=== PATIENT | female | born 1965 | race Caucasian/White ===

== ENCOUNTER → 2017-05-27 | Outpatient (CLI) | payer BC ==
[~2017-05-27] MED LIST: SINCALIDE IV ONE; SODIUM CHLORIDE 0.9% IV ONE
--- NOTE | 2017-05-27 12:49 | DIAGNOSTIC IMAGING REPORT ---
NUCLEAR MEDICINE HEPATOBILIARY SCAN WITH GALLBLADDER EJECTION FRACTION CLINICAL HISTORY: Abdominal pain. COMPARISON: None TECHNIQUE: 5.5 mCi of technetium 99m Choletec IV was injected at 10:45 AM on May 27, 2017. Immediately following injection, imaging of the abdomen was carried out for 60 minutes in the anterior projection. At this time, 0.92 mcg of Sincalide was injected IV as per protocol. Imaging was performed for an additional 45 minutes to estimate a gallbladder ejection fraction. FINDINGS: Hepatic uptake of radiotracer is prompt and homogeneous. Activity within the gallbladder and common bile duct is noted at 15 minutes. Small bowel activity is noted at 25 minutes. Following injection of sincalide, normal gallbladder emptying was noted with ejection fraction estimated at 53%. Normal is greater than 30-35%. IMPRESSION: 1. Normal hepatobiliary scan. No evidence of acute or chronic cholecystitis. 2. Normal gallbladder ejection fraction of 53%. Electronically signed by: Ever Cintron M.D. 05/27/2017 12:47 PM Dictated Date/Time: 05/27/2017 12:46 PM
== END | disposition home or self-care (01) ==
LOC: C.NUCL 10:13
PROVIDERS: ATTEND Internal Medicine Gastroenterology
DX: R10.13 Epigastric pain (principal)

== ENCOUNTER → 2017-08-16 | Outpatient (CLI) | payer BC | END | disposition home or self-care (01) | LOC: C.LAB 09:22 | PROVIDERS: ATTEND Nutritionist | DX: R53.83 Other fatigue (principal) ==

== ENCOUNTER 2019-01-09 21:06 | Inpatient (IN) ==
[2019-01-09] MEDS ORDERED: KETOROLAC TROMETHAMINE 15 MG/ML VIAL IV STA (21:22)
[2019-01-09] MEDS ORDERED: SODIUM CHLORIDE 0.9% 1000ML 1,000 ML IV ONE (21:22)
[2019-01-09] MEDS ORDERED: ONDANSETRON INJ 2 MG/ML 2 ML VIAL IV STA ×2 (21:22→23:24)
[2019-01-09 21:53] LABS: Basophils # (auto) 0.02 K/uL (0-0.2); Basophils % (auto) 0.2 %; Eosinophils # (auto) 0.19 K/uL (0-0.5); Eosinophils % (auto) 2.3 %; Hematocrit (blood only) 42.2 % (37-47); Hemoglobin 14.2 g/dL (12.0-16.0); Immature Granulocytes # (auto) 0.03 K/uL (0.00-0.02); Immature Granulocytes % (auto) 0.4 %; Lymphocytes # (auto) 2.26 K/uL (1.2-3.4); Lymphocytes % (auto) 27.2 %; Mean Corpuscular Hgb Conc 33.6 g/dL (32-36); Mean Corpuscular Volume 93.2 fL (80-100); Mean Platelet Volume 11.2 fL (7.4-10.4); Monocytes # (auto) 0.86 K/uL (0.11-0.59); Monocytes % (auto) 10.4 %; Neutrophils # (auto) 4.94 K/uL (1.4-6.5); Neutrophils % (auto) 59.5 %; Platelet Count 183 K/uL (130-400); RDW Coefficient of Variation 12.5 % (11.5-14.5); RDW Standard Deviation 42.4 fL (36.4-46.3); Red Blood Count 4.53 M/uL (4.2-5.4)
[2019-01-09 22:12] LABS: Albumin Level 3.9 gm/dl (3.4-5.0); BUN Creatinine Ratio 19.9 (10-20); Bilirubin Direct 0.2 mg/dl (0-0.2); Calcium 9.6 mg/dl (8.5-10.1); Creatinine Clr Calc Pharmacy 52.4 ml/min; Est GFR (African American) 83.4; Potassium 3.9 mmol/L (3.5-5.1)
[2019-01-09 22:15] LABS: Bilirubin,Total 0.5 mg/dl (0.2-1); Total Protein 7.6 gm/dl (6.4-8.2)
[2019-01-09 22:46] LABS: Appearance Urine Turbid (Clear); Bacteria Urine Automated Negative (Negative); Bilirubin Urine Negative (Negative); Blood Urine Negative (Negative); Color Urine Yellow; Glucose Urine UA Negative (Negative); Ketones Urine Negative (Negative); Leukocyte Esterase Urine Trace (Negative); Nitrite Urine Negative (Negative); Protein Urine Negative (Negative); RBC Urine Automated 0-4 /hpf (0-4); Specific Gravity Urine 1.019 (1.000-1.030); Urobilinogen Urine Negative (Negative)
--- NOTE | 2019-01-09 23:56 | Emergency Department Note ---
History of Present Illness General Chief complaint: Abdominal Pain Stated complaint: ABDOMINAL PAIN Source: patient Mode of arrival: ambulatory Limitations: no limitations History of Present Illness Maximum Pain Intensity: 7 This patient is a 53-year-old female who presents to the emergency department complaining of upper abdominal pain. The patient states that after eating approximately 3 hours ago, she developed severe upper abdominal pain with radiation into the center of her back. She states this is a burning pain and rates her discomfort an 8/10. She states nothing makes the pain better or worse. She took 2 Bentyl without relief. She has associated nausea but has not vomited. Patient states she has been dealing with problems with her gallbladder for the past few months. She was first diagnosed with gallstones at a hospital in [place] last month. She states she is scheduled to have her gallbladder removed in [address] Rocha. She denies any fevers or urinary symptoms. Home Medications Home Medications Medication Instructions Recorded Confirmed Type desvenlafaxine succinate [Pristiq] 50 mg PO QAM 01/03/19 01/09/19 History multivitamin 1 tab PO QAM 01/03/19 01/09/19 History ranitidine HCl [Zantac] 150 mg PO QAM 01/03/19 01/09/19 History cyanocobalamin (vitamin B-12) 0 mcg PO QAM 01/09/19 01/09/19 History [Vitamin B-12] Allergies Allergy/AdvReac Type Severity Reaction Status Date / Time lovastatin Allergy Unknown LEG PAIN, Verified 01/09/19 21:42 MUSCLE SPASMS simvastatin Allergy Unknown LEG PAIN, Verified 01/09/19 21:42 MUSCLE SPASMS Past Med/Surg History Medical History Anxiety GERD (gastroesophageal reflux disease) Hiatal hernia History of esophagitis History of gastritis Hyperlipidemia Peptic ulcer disease Surgical History H/O bursectomy OF RIGHT HIP History of arthroscopy LEFT KNEE History of arthroscopy of right shoulder Rotator Cuff Repair History of colonoscopy History of esophagogastroduodenoscopy (EGD) S/P bilateral breast reduction Social History Preferred Language: Citizen Of [place] Communication Ability: Effective Analog Ic Design Architect Required: No Beliefs That Will Affect Care: None Current Living Situation: Spouse Feels Safe at Home: Yes Smoking Status: Former smoker Tobacco Type: cigarettes ; Second Hand Exposure: No ; Hx Alcohol Use: No Hx Substance Use: No Review of Systems A total of 10 systems reviewed and were otherwise negative Physical Exam Vital Signs Vital Signs - 24 hr 01/09/19 21:09 01/09/19 22:26 01/09/19 23:56 Temperature 36.4 C L Temperature Source Oral Sepsis Recent Fever Within 48 Hours No Sepsis New/Unexplained Change in Mental Status No Sepsis Action Taken by Nursing No Action Required Pulse Rate 63 Pulse Rate [Right Finger] 54 L 60 Pulse Rhythm Regular Pulse Rhythm [Right Finger] Regular Regular Pulse Strength [Right Finger] Normal Normal Respiratory Rate 20 20 20 Respiratory Effort / Characteristics Non-Labored Spontaneous Non-Labored Non-Labored Spontaneous Respiratory Depth Normal Normal Normal Respiratory Pattern Regular Blood Pressure 123/70 Blood Pressure [Right Arm] 101/54 L 103/66 Blood Pressure Mean 87 Blood Pressure Mean [Right Arm] 69 78 Blood Pressure Position Sitting Blood Pressure Position [Right Arm] Lying Pulse Oximetry 99 100 99 Oxygen Delivery Method Room Air Room Air Room Air VITALS: Vitals are noted on the nurse's note and reviewed by myself. Vital signs stable. GENERAL: This is a 53-year-old female, in no acute distress, nondiaphoretic, well-developed well-nourished. SKIN: The skin was without rashes. EYES: Pupils equal round and reactive to light and accommodation. No scleral icterus. MOUTH: Mucous membranes moist. NECK: Supple without nuchal rigidity. No lymphadenopathy. HEART: Regular rate and rhythm without murmurs gallops or rubs. LUNGS: Clear to auscultation bilaterally without wheezes, rales or rhonchi. ABDOMEN: Positive bowel sounds x 4. Moderate tenderness to palpation in the epigastric region and right upper quadrant. Positive Lawson sign. EXTREMITIES: No peripheral edema. NEURO: Patient was alert and oriented to person place and time. Course Consultations Consultation #1: Dr. Fitzpatrick-General surgery Dr. Fitzpatrick recommends admitting the patient to the medicine service for GI consultation and will consult on the patient. Consultation #2: [place] [facility] [place] Administered Medications Ceftriaxone Sodium (Rocephin) 1,000 mg in 50 mls @ 100 mls/hr IV DAILY@2200 VANE Stop: 01/20/19 01:59 Last Infusion: 01/10/19 02:30 Dose: 0 mls/hr Documented by: [id number] Admin: 01/10/19 02:00 Dose: 100 mls/hr Documented by: [id number] Famotidine 20 mg/ Syringe 5 mls @ 2.5 mls/min IV Q12 VANE Stop: 02/09/19 01:31 Last Admin: 01/10/19 08:54 Dose: 2.5 mls/min Documented by: [id number] Admin: 01/10/19 02:00 Dose: 2.5 mls/min Documented by: [id number] Potassium Chloride/Sodium Chloride (Normal Saline W/20 Meq Kcl) 20 meq in 1,000 mls @ 100 mls/hr IV .Q10H VANE Stop: 02/09/19 01:31 Last Admin: 01/10/19 12:08 Dose: 100 mls/hr Documented by: [id number] Infusion: 01/10/19 12:08 Dose: 100 mls/hr Documented by: [id number] Infusion: 01/10/19 07:00 Dose: 100 mls/hr Documented by: [id number] Infusion: 01/10/19 06:04 Dose: 0 mls/hr Documented by: [id number] Infusion: 01/10/19 02:30 Dose: 100 mls/hr Documented by: [id number] Infusion: 01/10/19 02:22 Dose: 0 mls/hr Documented by: [id number] Admin: 01/10/19 02:00 Dose: 100 mls/hr Documented by: [id number] Discontinued Medications Sodium Chloride (Nss 1000ml) 1,000 mls @ 999 mls/hr IV .Q1H1M ONE Stop: 01/09/19 22:22 Last Infusion: 01/09/19 22:28 Dose: 0 mls/hr Documented by: [id number] Admin: 01/09/19 21:40 Dose: 999 mls/hr Documented by: [id number] Ketorolac Tromethamine (Toradol) 15 mg IV NOW STA Stop: 01/09/19 21:23 Last Admin: 01/09/19 21:40 Dose: 15 mg Documented by: [id number] Ondansetron HCl (Zofran) 4 mg IV NOW STA Stop: 01/09/19 21:23 Last Admin: 01/09/19 21:40 Dose: 4 mg Documented by: [id number] Ondansetron HCl (Zofran) 4 mg IV NOW STA Stop: 01/09/19 23:25 Last Admin: 01/09/19 23:28 Dose: 4 mg Documented by: [id number] Medical Decision Making Differential Diagnosis Differential diagnosis includes acute cholecystitis, biliary colic, choledocholithiasis, peptic ulcer disease, gastritis, among others. Home Medications Current Medication List: was personally reviewed by me Laboratory Data Attestation: I reviewed the patient's lab results. Result diagrams: 01/10/19 07:36 01/10/19 07:36 Lab Results 01/09/19 01/09/19 01/09/19 Range/Units 21:38 21:38 22:28 WBC 8.30 (4.8-10.8) K/uL RBC 4.53 (4.2-5.4) M/uL Hgb 14.2 (12.0-16.0) g/dL Hct 42.2 (37-47) % MCV 93.2 (80-100) fL MCH 31.3 (25-34) pg MCHC 33.6 (32-36) g/dL RDW Std Deviation 42.4 (36.4-46.3) fL RDW Coeff of Robby 12.5 (11.5-14.5) % Plt Count 183 (130-400) K/uL MPV 11.2 H (7.4-10.4) fL Immature Gran % (Auto) 0.4 % Neut % (Auto) 59.5 % Lymph % (Auto) 27.2 % [place] % (Auto) 10.4 % Eos % (Auto) 2.3 % Baso % (Auto) 0.2 % Immature Gran # (Auto) 0.03 H (0.00-0.02) K/uL Neut # (Auto) 4.94 (1.4-6.5) K/uL Lymph # (Auto) 2.26 (1.2-3.4) K/uL [place] # (Auto) 0.86 H (0.11-0.59) K/uL Eos # (Auto) 0.19 (0-0.5) K/uL Baso # (Auto) 0.02 (0-0.2) K/uL Sodium 141 (136-145) mmol/L Potassium 3.9 (3.5-5.1) mmol/L Chloride 106 (98-107) mmol/L Carbon Dioxide 30 (21-32) mmol/L Anion Gap 5.0 (3-11) BUN 18 (7-18) mg/dl Creatinine 0.90 (0.6-1.2) mg/dl Est Cr Clr Drug Dosing 52.4 ml/min Est GFR ( Amer) 83.4 Est GFR (Non-Af Amer) 72.0 BUN/Creatinine Ratio 19.9 (10-20) Glucose 100 H (70-99) mg/dl Calcium 9.6 (8.5-10.1) mg/dl Total Bilirubin 0.5 (0.2-1) mg/dl Direct Bilirubin 0.2 (0-0.2) mg/dl AST 325 H (15-37) U/L ALT 188 H (12-78) U/L Alkaline Phosphatase 104 (45-117) U/L Total Protein 7.6 (6.4-8.2) gm/dl Albumin 3.9 (3.4-5.0) gm/dl Lipase 172 (73-393) U/L Urine Color Yellow Urine Appearance Turbid A (Clear) Urine pH 8.0 H (4.5-7.5) Ur Specific [place] 1.019 (1.000-1.030) Urine Protein Negative (Negative) Urine Glucose (UA) Negative (Negative) Urine Ketones Negative (Negative) Urine Blood Negative (Negative) Urine Nitrite Negative (Negative) Urine Bilirubin Negative (Negative) Urine Urobilinogen Negative (Negative) Ur Leukocyte Esterase Trace H (Negative) Urine WBC (Auto) 1-5 (0-5) /hpf Urine RBC (Auto) 0-4 (0-4) /hpf U Hyaline Cast (Auto) 1-5 (0-5) /lpf U Epithel Cells (Auto) 10-20 H (0-5) /lpf Urine Bacteria (Auto) Negative (Negative) POC Ur Test (NEG) 01/09/19 Range/Units 22:28 WBC (4.8-10.8) K/uL RBC (4.2-5.4) M/uL Hgb (12.0-16.0) g/dL Hct (37-47) % MCV (80-100) fL MCH (25-34) pg MCHC (32-36) g/dL RDW Std Deviation (36.4-46.3) fL RDW Coeff of Robby (11.5-14.5) % Plt Count (130-400) K/uL MPV (7.4-10.4) fL Immature Gran % (Auto) % Neut % (Auto) % Lymph % (Auto) % [place] % (Auto) % Eos % (Auto) % Baso % (Auto) % Immature Gran # (Auto) (0.00-0.02) K/uL Neut # (Auto) (1.4-6.5) K/uL Lymph # (Auto) (1.2-3.4) K/uL [place] # (Auto) (0.11-0.59) K/uL Eos # (Auto) (0-0.5) K/uL Baso # (Auto) (0-0.2) K/uL Sodium (136-145) mmol/L Potassium (3.5-5.1) mmol/L Chloride (98-107) mmol/L Carbon Dioxide (21-32) mmol/L Anion Gap (3-11) BUN (7-18) mg/dl Creatinine (0.6-1.2) mg/dl Est Cr Clr Drug Dosing ml/min Est GFR ( Amer) Est GFR (Non-Af Amer) BUN/Creatinine Ratio (10-20) Glucose (70-99) mg/dl Calcium (8.5-10.1) mg/dl Total Bilirubin (0.2-1) mg/dl Direct Bilirubin (0-0.2) mg/dl AST (15-37) U/L ALT (12-78) U/L Alkaline Phosphatase (45-117) U/L Total Protein (6.4-8.2) gm/dl Albumin (3.4-5.0) gm/dl Lipase (73-393) U/L Urine Color Urine Appearance (Clear) Urine pH (4.5-7.5) Ur Specific [place] (1.000-1.030) Urine Protein (Negative) Urine Glucose (UA) (Negative) Urine Ketones (Negative) Urine Blood (Negative) Urine Nitrite (Negative) Urine Bilirubin (Negative) Urine Urobilinogen (Negative) Ur Leukocyte Esterase (Negative) Urine WBC (Auto) (0-5) /hpf Urine RBC (Auto) (0-4) /hpf U Hyaline Cast (Auto) (0-5) /lpf U Epithel Cells (Auto) (0-5) /lpf Urine Bacteria (Auto) (Negative) POC Ur Test NEG (NEG) Imaging Data Attestation: I personally reviewed and interpreted this imaging study as follows: Radiologist's Impression: US RUQ: The gallbladder is distended containing multiple gallstones. No definite gallbladder wall thickening. There is linear hypoechogenicity adjacent to the gallbladder which does not demonstrate vascularity. The possibility of pericholecystic fluid is difficult to exclude. There is a positive sonographic Lawson sign. Overall findings could represent acute cholecystitis in the correct clinical setting. Common bile duct is dilated measuring up to 7 mm. A distal obstructing lesion is not clearly seen. Recommend correlation with liver function tests and consider MRCP or ERCP. Radiologist: Reji Peraza MD Blood Pressure Blood Pressure Findings: Normal blood pressure Blood Pressure Disposition: did not require urgent referral MDM Narrative The patient is a 53-year-old female who presents today complaining of epigastric and right upper quadrant abdominal pain in the setting of known gallbladder disease. Labs revealed no leukocytosis or concerning anemia. LFTs were found to be elevated with AST 325, ALT 188. Bilirubin within normal limits. Gallbladder ultrasound was performed and read by statrad showing multiple stones, mild dilation of the common bile duct and possible pericholecystic fluid. Surgery initially consulted and recommended evaluation by the medical service for GI consultation and MRCP/ERCP. They will consult on the patient. Patient was agreeable with this plan of care. Case was discussed with the [facility] hospitalist, who agreed to evaluate the patient for further care. Impression & Plan Acute calculous cholecystitis Discharge Plan Visit Data *Final* Discharge Date/Time: 01/10/19 01:24 Chief Complaint: Abdominal Pain Stated Complaint: ABDOMINAL PAIN ED Provider: Jacobo Brown ED Midlevel Provider: Brenda Ambriz Discharge Problem: Acute calculous cholecystitis Patient Disposition: Admitted As Inpatient Discharge Instructions Interventions: ED Discharge Assessment Last Done: 01/10/19 01:24
[2019-01-10] MEDS ORDERED: ONDANSETRON INJ 2 MG/ML 2 ML VIAL IV PRN ×2 (01:32)
[2019-01-10] MEDS: cefTRIAXone SODIUM 1,000 MG/50 ML BAG IV SCH ×2 (02:00→21:06)
[2019-01-10] MEDS: NSS + 20MEQ KCL 20 MEQ/1,000 ML BAG IV SCH ×3 (02:00→21:06)
[2019-01-10] MEDS: FAMOTIDINE 20 MG in SYRINGE 3 ML IV SCH ×3 (02:00→21:06)
--- NOTE | 2019-01-10 02:55 | History & Physical Report ---
Date of Service January 10, 2019 Assessment & Plan (1) Calculous cholecystitis: Calculus cholecystitis with common bile duct dilatation of 7 mm and abnormal LFTs- Patient has had a negative EGD, and colonoscopy. She reports having a HIDA scan last year that was normal. Her symptoms and imaging along with laboratories to this point today would be consistent with cholecystitis. There would be concern regarding a possible blockage of the CBD by a stone. We will therefore order an MRCP. Patient reports that she was scheduled for outpatient surgery with Dr. Rocha on 01/11/2019. We will consult Dr. Rocha. If MRCP is abnormal, we will consult Dr. Olivares, who performed her last EGD, for a possible ERCP. Ceftriaxone 1 g IV daily. Famotidine 20 mg IV every 12 hours. Morphine sulfate 2 mg IV every 4 hours as needed severe pain. Zofran 4 mg IV every 6 hours as needed. Present on Admission?: Yes (2) Common bile duct dilatation: See above Present on Admission?: Yes (3) Abnormal LFTs: See above Present on Admission?: Yes History of Present Illness Chief Complaint: The patient presents to the emergency department today with recurrent epigastric to upper abdominal to right lateral back area pain. Primary Care Provider: Consuelo Adair MD The patient is a 53-year-old female who presents to the emergency department with a recurrent episode of epigastric, right upper quadrant and right posterior back pain. These are most often triggered by eating fatty foods, but may occur out of nowhere. She was seen at an emergency department at [place], and there was question about a possible gallbladder issue. She reports that she is scheduled to undergo cholecystectomy by Dr. Rocha from general surgery on 01/11/2019. Allergies Allergy/AdvReac Type Severity Reaction Status Date / Time lovastatin Allergy Unknown LEG PAIN, Verified 01/09/19 21:42 MUSCLE SPASMS simvastatin Allergy Unknown LEG PAIN, Verified 01/09/19 21:42 MUSCLE SPASMS Home Medications Home Medications Medication Instructions Recorded Confirmed Type desvenlafaxine succinate [Pristiq] 50 mg PO QAM 01/03/19 01/09/19 History magnesium 1 dose PO QAM 01/03/19 01/09/19 History multivitamin 1 tab PO QAM 01/03/19 01/09/19 History ranitidine HCl [Zantac] 150 mg PO QAM 01/03/19 01/09/19 History cyanocobalamin (vitamin B-12) 0 mcg PO QAM 01/09/19 01/09/19 History [Vitamin B-12] Past Med/Surg History Medical History Anxiety GERD (gastroesophageal reflux disease) Hiatal hernia History of esophagitis History of gastritis Hyperlipidemia Peptic ulcer disease Surgical History H/O bursectomy OF RIGHT HIP History of arthroscopy LEFT KNEE History of arthroscopy of right shoulder Rotator Cuff Repair History of colonoscopy History of esophagogastroduodenoscopy (EGD) S/P bilateral breast reduction Social History Preferred Language: [place] Communication Ability: Effective Crematorium Operator Required: No Beliefs That Will Affect Care: None Current Living Situation: Spouse Other Information That Helps Us Care for You: No Feels Safe at Home: Yes Smoking Status: Former smoker Tobacco Type: cigarettes ; Do You Dip or Chew Tob acco: No ; Second Hand Exposure: No ; Tobacco Cessation Education Requested by Patient: No Hx Alcohol Use: No Hx Substance Use: No Review of Systems Review of Systems: The patient denies chest pain, palpitations, shortness of breath, dyspnea on exertion, cough, lower extremity swelling, sore throat, fevers, chills, sweats, weight change, vomiting, diarrhea , constipation, blood in urine or stool, dysuria, urinary frequency or urgency, lightheadedness, dizziness, headache, memory loss, loss of consciousness, rash, abnormal bruising or bleeding, imbalance, focal or generalized weakness, numbness or tingling in arms or legs, generalized arthralgias or myalgias, back or neck pain, or night sweats. The review of systems is otherwise negative other than for that already noted above, and at least 10 systems have been reviewed. Physical Exam Physical Exam: The patient is awake, alert and oriented 3, well developed and well nourished, normocephalic and atraumatic, lying in bed and in no acute distress. HEENT--PERRL, EOMI, mucous membranes and oropharynx dry. Neck--supple. No JVD. No bruits. Thyroid normal, trachea midline, no adenopathy. Heart--normal S1 and S2. No murmurs, rubs or gallops. Lungs--clear bilaterally, no respiratory distress, no accessory muscle use. Abdomen--normal bowel sounds and soft. Mild epigastric and right upper quadrant tenderness pain. Extremities--no cyanosis or clubbing. No edema. There are good distal pulses b/l. Dermatologic--normal skin turgor, normal color, no abnormal lymph nodes, no rash. Neurologic--cranial nerves II through XII grossly intact. Rheumatologic--normal range of motion. Psychiatric--normal affect. Results & Data Vital Signs (Past 12 Hours) Vital Signs Temp Pulse Pulse Resp BP BP Pulse Ox 01/10/19 01:43 98.1 F 60 16 107/66 97 01/10/19 01:32 98.1 F 60 16 107/66 97 01/09/19 23:56 60 20 103/66 99 01/09/19 22:26 54 L 20 101/54 L 100 01/09/19 21:09 97.5 F L 63 20 123/70 99 Laboratory Results Laboratory Results WBC 8.30 K/uL (4.8-10.8) 01/09/19 21:38 RBC 4.53 M/uL (4.2-5.4) 01/09/19 21:38 Hgb 14.2 g/dL (12.0-16.0) 01/09/19 21:38 Hct 42.2 % (37-47) 01/09/19 21:38 MCV 93.2 fL (80-100) 01/09/19 21:38 MCH 31.3 pg (25-34) 01/09/19 21:38 MCHC 33.6 g/dL (32-36) 01/09/19 21:38 RDW Std Deviation 42.4 fL (36.4-46.3) 01/09/19 21:38 RDW Coeff of Robby 12.5 % (11.5-14.5) 01/09/19 21:38 Plt Count 183 K/uL (130-400) 01/09/19 21:38 MPV 11.2 fL (7.4-10.4) H 01/09/19 21:38 Immature Gran % (Auto) 0.4 % 01/09/19 21:38 Neut % (Auto) 59.5 % 01/09/19 21:38 Lymph % (Auto) 27.2 % 01/09/19 21:38 [place] % (Auto) 10.4 % 01/09/19 21:38 Eos % (Auto) 2.3 % 01/09/19 21:38 Baso % (Auto) 0.2 % 01/09/19 21:38 Immature Gran # (Auto) 0.03 K/uL (0.00-0.02) H 01/09/19 21:38 Neut # (Auto) 4.94 K/uL (1.4-6.5) 01/09/19 21:38 Lymph # (Auto) 2.26 K/uL (1.2-3.4) 01/09/19 21:38 [place] # (Auto) 0.86 K/uL (0.11-0.59) H 01/09/19 21:38 Eos # (Auto) 0.19 K/uL (0-0.5) 01/09/19 21:38 Baso # (Auto) 0.02 K/uL (0-0.2) 01/09/19 21:38 Sodium 141 mmol/L (136-145) 01/09/19 21:38 Potassium 3.9 mmol/L (3.5-5.1) 01/09/19 21:38 Chloride 106 mmol/L (98-107) 01/09/19 21:38 Carbon Dioxide 30 mmol/L (21-32) 01/09/19 21:38 Anion Gap 5.0 (3-11) 01/09/19 21:38 BUN 18 mg/dl (7-18) 01/09/19 21:38 Creatinine 0.90 mg/dl (0.6-1.2) 01/09/19 21:38 Est Cr Clr Drug Dosing 52.4 ml/min 01/09/19 21:38 Est GFR ( Amer) 83.4 01/09/19 21:38 Est GFR (Non-Af Amer) 72.0 01/09/19 21:38 BUN/Creatinine Ratio 19.9 (10-20) 01/09/19 21:38 Glucose 100 mg/dl (70-99) H 01/09/19 21:38 Calcium 9.6 mg/dl (8.5-10.1) 01/09/19 21:38 Total Bilirubin 0.5 mg/dl (0.2-1) 01/09/19 21:38 Direct Bilirubin 0.2 mg/dl (0-0.2) 01/09/19 21:38 AST 325 U/L (15-37) H 01/09/19 21:38 ALT 188 U/L (12-78) H 01/09/19 21:38 Alkaline Phosphatase 104 U/L (45-117) 01/09/19 21:38 Total Protein 7.6 gm/dl (6.4-8.2) 01/09/19 21:38 Albumin 3.9 gm/dl (3.4-5.0) 01/09/19 21:38 Lipase 172 U/L (73-393) 01/09/19 21:38 Urine Color Yellow 01/09/19 22:28 Urine Appearance Turbid (Clear) A 01/09/19 22:28 Urine pH 8.0 (4.5-7.5) H 01/09/19 22:28 Ur Specific [place] 1.019 (1.000-1.030) 01/09/19 22:28 Urine Protein Negative (Negative) 01/09/19 22:28 Urine Glucose (UA) Negative (Negative) 01/09/19 22:28 Urine Ketones Negative (Negative) 01/09/19 22:28 Urine Blood Negative (Negative) 01/09/19 22:28 Urine Nitrite Negative (Negative) 01/09/19 22:28 Urine Bilirubin Negative (Negative) 01/09/19 22:28 Urine Urobilinogen Negative (Negative) 01/09/19 22:28 Ur Leukocyte Esterase Trace (Negative) H 01/09/19 22:28 Urine WBC (Auto) 1-5 /hpf (0-5) 01/09/19 22:28 Urine RBC (Auto) 0-4 /hpf (0-4) 01/09/19 22:28 U Hyaline Cast (Auto) 1-5 /lpf (0-5) 01/09/19 22:28 U Epithel Cells (Auto) 10-20 /lpf (0-5) H 01/09/19 22:28 Urine Bacteria (Auto) Negative (Negative) 08/05/19 22:28 POC Ur Test NEG (NEG) 01/09/19 22:28 Code Status & VTE Plan Code Status Full code VTE Prophylaxis Plan VTE Prophylaxis will be ordered: Yes PG Care Time/CCT Total # of Minutes Spent Total Time Spent with Patient: Total time spent is greater than 50% in coordination of care (as documented) at patient's floor/unit and/or counseling patient:
[2019-01-10] MEDS ORDERED: MoRPHine SULFATE 2 MG/ML CARP IV PRN (02:56)
--- NOTE | 2019-01-10 06:56 | CT Scan Report ---
CT abd pelvis wo con CLINICAL HISTORY: 53 years-old Female presenting with abnormal LFT's, gallbladder wall thickening. TECHNIQUE: Multidetector CT of the abdomen and pelvis was performed without the use of intravenous co ntrast. IV contrast: None. One or more dose lowering techniques were used consistent with the princip les of ALARA (as low as reasonably achievable), including automatic exposure control, mA or kV adjust ment to individual patient size, and/or use of iterative reconstruction. COMPARISON: Ultrasound from 01/09/2019. CT DOSE (mGy.cm): The estimated cumulative dose is 262.41 mGy.cm. FINDINGS: Home Support Worker topogram: Unremarkable. Lung bases: Normal heart size. No pericardial or pleural effusion. Minimal dependent changes likely a telectasis. Liver: Normal morphology. Normal density. Well-defined hypodense lesion centrally in the liver likely hepatic cyst. Biliary: Mild intrahepatic and extra hepatic bladder ductal dilatation is suggested allowing for nonc ontrast technique. Layering gallstones within the distended gallbladder. There is also suggestion of gallbladder wall thickening and trace pericholecystic fluid. No pericholecystic fat infiltration. Pancreas: Normal noncontrast appearance. Spleen: Normal noncontrast appearance. Adrenal glands: Normal noncontrast appearance. Kidneys and ureters: Normal noncontrast appearance. No nephrolithiasis. No hydronephrosis. Normal ure ters. Bladder: Incompletely evaluated secondary to underdistention. Pelvic organs: Normal noncontrast appearance. Bowel: Normal appendix. No bowel obstruction. Peritoneal cavity: No free fluid or intraperitoneal gas. Lymph nodes: No gross lymphadenopathy allowing for noncontrast technique. Vasculature: Atherosclerosis of the normal caliber abdominal aorta. Abdominal wall: Normal. Musculoskeletal: Degenerative changes of the spine. IMPRESSION: 1. Distended gallbladder with subtle wall thickening, trace pericholecystic fluid, and gallstones. T his strongly suggests the diagnosis of acute calculus cholecystitis. Surgical consultation advised. Electronically signed by: Lon Foster M.D. 01/10/2019 6:55 AM
--- NOTE | 2019-01-10 07:22 | Magnetic Resonance Report ---
MRCP CLINICAL HISTORY: Cholecystitis. COMPARISON STUDY: Abdominal CT dated 01/10/2019. Abdominal ultrasound dated 01/09/2019. TECHNIQUE: Abdominal MRCP is performed utilizing various T2-weighted sequences in the axial and coron al planes. IV contrast was not administered for this examination. 3-D reformats are created and asses sed. The examination is degraded by motion artifact. FINDINGS: The gallbladder is distended and filled with numerous gallstones. The gallbladder wall is thickened a nd there is pericholecystic inflammation and fluid. The appearance is consistent with acute cholecyst itis. The common bile duct is diminutive measuring up to 3 mm in diameter. There are no filling defec ts identified to suggest choledocholithiasis. There is a questionable second ductal structure (both a re seen on coronal high-resolution image #66 of 136) of indeterminant significance extending from the hilum. Variant ductal anatomy/duplication is not excluded. There is likely a stone within the cystic duct seen on axial high-resolution image #143 of 321. The pancreatic duct is normal in caliber and n ot well visualized. A 10 mm cyst is identified in the left lobe of the liver. The unenhanced liver is otherwise grossly u nremarkable. The unenhanced spleen, adrenal glands, and pancreas are normal as imaged. The kidneys ar e normal in size and without hydronephrosis. There is no evidence of bowel obstruction. Colonic fecal retention is observed. The abdominal aorta is normal in caliber. No pleural effusion is identified. The bony structures are normal as imaged. IMPRESSION: 1. Cholelithiasis with evidence of acute cholecystitis. 2. A stone is likely present within the cystic duct. 3. The common bile duct is diminutive. There is no evidence of choledocholithiasis. 4. Question a second ductal structure extending from the hepatic hilum towards the duodenum. This is not well delineated, and variant ductal anatomy/duplication is not excluded. Electronically signed by: Pranav Hudson M.D. 01/10/2019 7:21 AM
--- NOTE | 2019-01-10 07:28 | Ultrasound Report ---
ULTRASOUND RIGHT UPPER QUADRANT ABDOMEN CLINICAL HISTORY: Right upper quadrant abdominal pain. COMPARISON STUDY: No priors. TECHNIQUE: Real-time, grayscale, and color flow sonography of the right upper quadrant of the abdomen was performed. Images are reviewed in the transverse and longitudinal planes. FINDINGS: Liver: The liver is normal in size and echotexture. There is no intrahepatic biliary ductal dilatatio n. The main portal vein is patent. Gallbladder: The gallbladder is distended and filled with numerous shadowing gallstones. The gallblad micky wall measures up to 2 mm in diameter. There is trace pericholecystic fluid. A sonographic Lawson' s sign is reportedly present. The common bile duct measures up to 0.7 cm in diameter at the head of t he pancreas. Pancreas: Visualized portions of the pancreatic head and body are normal in appearance. Right kidney: Survey images of the right kidney demonstrate normal size and echotexture. There is no hydronephrosis. Ascites: None. IMPRESSION: Cholelithiasis with evidence of acute cholecystitis. Electronically signed by: Pranav Hudson M.D. 01/10/2019 7:26 AM
[2019-01-10 07:49] LABS: Basophils # (auto) 0.01 K/uL (0-0.2); Basophils % (auto) 0.3 %; Eosinophils # (auto) 0.14 K/uL (0-0.5); Hematocrit (blood only) 37.3 % (37-47); Hemoglobin 12.3 g/dL (12.0-16.0); Lymphocytes # (auto) 1.14 K/uL (1.2-3.4); Lymphocytes % (auto) 32.5 %; Mean Corpuscular Volume 92.8 fL (80-100); Mean Platelet Volume 11.4 fL (7.4-10.4); Monocytes # (auto) 0.48 K/uL (0.11-0.59); Monocytes % (auto) 13.7 %; Neutrophils # (auto) 1.74 K/uL (1.4-6.5); Neutrophils % (auto) 49.5 %; Platelet Count 145 K/uL (130-400); RDW Coefficient of Variation 12.5 % (11.5-14.5); RDW Standard Deviation 42.7 fL (36.4-46.3); Red Blood Count 4.02 M/uL (4.2-5.4); White Blood Count 3.51 K/uL (4.8-10.8)
[2019-01-10 08:08] LABS: Partial Thromboplastin Ratio 0.9; Partial Thromboplastin Time 25.3 Seconds (21.0-31.0); Prothrombin Time 10.2 Seconds (9.0-12.0)
[2019-01-10 08:19] LABS: Albumin Level 3.3 gm/dl (3.4-5.0); BUN Creatinine Ratio 18.6 (10-20); Calcium 8.6 mg/dl (8.5-10.1); Creatinine Clr Calc Pharmacy 66.9 ml/min; Est GFR (African American) 111.1; Est GFR (Non-African American) 95.9; Potassium 4.3 mmol/L (3.5-5.1)
[2019-01-10 08:21] LABS: Albumin Globulin Ratio 1.1 (0.9-2); Bilirubin,Total 0.8 mg/dl (0.2-1); Total Protein 6.3 gm/dl (6.4-8.2)
--- NOTE | 2019-01-10 08:52 | Surgery Consultation ---
Date of Consultation January 10, 2019 Assessment & Plan (1) Calculous cholecystitis: MRCP shows stone in cystic duct clinically improved. continue antibiotics. ice chips/sips only/NPO after midnight. gave pt options. will keep on schedule for lap priya tomorrow with Dr. Rocha. History of Present Illness Attending Physician: Blanquita Ortega MD History of Present Illness pt was scheduled to have lap priya by Dr. Rocha tomorrow. had severe pain last night and presented to ER. findings with acute cholecystits and slight bump in LFT's. Allergies Allergy/AdvReac Type Severity Reaction Status Date / Time lovastatin Allergy Unknown LEG PAIN, Verified 01/09/19 21:42 MUSCLE SPASMS simvastatin Allergy Unknown LEG PAIN, Verified 01/09/19 21:42 MUSCLE SPASMS Home Medications Home Medications Medication Instructions Recorded Confirmed Type desvenlafaxine succinate [Pristiq] 50 mg PO QAM 01/03/19 01/09/19 History magnesium 1 dose PO QAM 01/03/19 01/09/19 History multivitamin 1 tab PO QAM 01/03/19 01/09/19 History ranitidine HCl [Zantac] 150 mg PO QAM 01/03/19 01/09/19 History cyanocobalamin (vitamin B-12) 0 mcg PO QAM 01/09/19 01/09/19 History [Vitamin B-12] Patient History Medical History Anxiety GERD (gastroesophageal reflux disease) Hiatal hernia History of esophagitis History of gastritis Hyperlipidemia Peptic ulcer disease Surgical History H/O bursectomy OF RIGHT HIP History of arthroscopy LEFT KNEE History of arthroscopy of right shoulder Rotator Cuff Repair History of colonoscopy History of esophagogastroduodenoscopy (EGD) S/P bilateral breast reduction Social History Preferred Language: Bahraini Communication Ability: Effective Staff Internist Office Based Only Required: No Beliefs That Will Affect Care: None Current Living Situation: Spouse Feels Safe at Home: Yes Smoking Status: Former smoker Tobacco Type: cigarettes ; Second Hand Exposure: No ; Hx Alcohol Use: No Hx Substance Use: No Review of Systems Review of Systems: All systems reviewed & are unremarkable except as noted in HPI & below Physical Exam Physical Exam: alert/oriented. nad Heent: no jaundice. Pearla. EOMI Heart: RRR Lungs: CTA b/l abd: soft. mild RUP ttp. no g/g/r ext: no c/c/e Results & Data Vital Signs (Past 12 Hours) Vital Signs Temp Pulse Pulse Resp BP BP BP 01/10/19 07:07 36.4 C L 48 L 15 100/62 01/10/19 01:43 36.7 C 60 16 107/66 01/10/19 01:32 36.7 C 60 16 107/66 01/09/19 23:56 60 20 103/66 01/09/19 22:26 54 L 20 101/54 L 01/09/19 21:09 36.4 C L 63 20 123/70 Pulse Ox 01/10/19 07:07 97 01/10/19 01:43 97 01/10/19 01:32 97 01/09/19 23:56 99 01/09/19 22:26 100 01/09/19 21:09 99 PG Care Time/CCT Total # of Minutes Spent Total Time Spent with Patient: Total time spent is greater than 50% in coordination of care (as documented) at patient's floor/unit and/or counseling patient:
--- NOTE | 2019-01-10 11:36 | Family Medicine Progress Note ---
Date of Service January 10, 2019 Assessment & Plan (1) Calculous cholecystitis: Patient is a 53 year old female that presented to the ED with RUQ abdominal pain. She was scheduled to undergo elective cholecystectomy with Dr. Rocha on 01/11/19. Acute Calculous Cholecystitis -MRCP shows stone in cystic duct -General Surgery Consulted -Patient clinically improved today -Continue IV Ceftriaxone -Clear liquid diet transitioning to NPO after midnight -Will have Lap Giselle with Dr. Rocha tomorrow morning. -Famotidine IV Q12H -Morphine 2mg IV Q4H PRN -Zofran 4mg IV Q6H PRN -Labs ordered for the AM CBC and CMP. GERD -Hold home Ranitidine Hiatal Hernia -Had a recent Endoscopy with Dr. Olivares in July. Anxiety -Continue home Pristiq FEN/GI - NS + KCL Code - Full DVT - SCD's (2) Anxiety: (3) GERD (gastroesophageal reflux disease): (4) Hiatal hernia: Supervising Physician Co-Signing Physician Notes Resident Physician Supervision Note: I independently interviewed and examined the patient and verified the hoover history and physical, reviewed labs and image studies, discussed the case with the resident Dr. Ceballos and agree with the findings and care plan. Subjective Patient seen this AM at the bedside. Patient states that she is feeling better this morning and that her abdominal pain has decreased greatly. She does note slight nausea, but that the zofran has been taking care that. She notes that she has been having abdominal pain/discomfort and difficulties with her gallbladder since July and that she was actually scheduled to have surgery with Dr. Rocha tomorrow (01/11/19). Currently she is comfortable and understands that she is to have surgery tomorrow morning with Dr. Rocha due to her symptoms improvement this morning. Review of Systems Constitutional: no fever, no chills, no body aches and no weakness Eyes: no eye pain Ear, Nose, Mouth, Throat: no ear pain, no tinnitus and no dizziness Respiratory: no cough, no chest congestion, no dyspnea, no dyspnea on exertion and no hemoptysis Cardiovascular: no chest pain, no chest pain at rest, no chest pain with activity, no radiating jaw, neck or arm pain and no dyspnea Gastrointestinal: + abdominal pain and + nausea; no vomiting, no cramping, no constipation, no diarrhea/loose stools and no fecal incontinence Genitourinary: no dysuria, no urinary frequency, no urinary hesitancy, no urinary incontinence and no hematuria Musculoskeletal: no back pain Integumentary: no change in skin color Physical Exam Constitutional: well developed and well nourished; no acute distress Eyes: normal visual guerra by confrontation, + anicteric sclerae and PERRL ENMT: external ear and nose normal, oropharynx normal Neck: trachea midline, no thyromegaly Respiratory: normal respiratory effort, lungs clear to auscultation Cardiovascular: RRR, no murmur, no edema Gastrointestinal (Abdomen): Inspection/Auscultation: abdomen normal to inspection and normal bowel sounds; abdomen not distended Percussion/Palpation: + abdomen tender (worst in the RUQ) and abdomen soft; no guarding and abdomen not firm Musculoskeletal: Head/Neck/Chest: normocephalic, head atraumatic and neck supple Skin: no jaundice Neurologic: awake; not confused and not obtunded Psychiatric: A+Ox3, euthymic affect Results & Data Vital Signs (Past 12 Hours) Vital Signs Temp Pulse Resp BP BP Pulse Ox 01/10/19 07:07 36.4 C L 48 L 15 100/62 97 01/10/19 01:43 36.7 C 60 16 107/66 97 01/10/19 01:32 36.7 C 60 16 107/66 97 01/09/19 23:56 60 20 103/66 99 Laboratory Results Abnormal lab results 01/09/19 01/09/19 01/09/19 Range/Units 21:38 21:38 22:28 WBC (4.8-10.8) K/uL RBC (4.2-5.4) M/uL MPV 11.2 H (7.4-10.4) fL Immature Gran # (Auto) 0.03 H (0.00-0.02) K/uL Lymph # (Auto) (1.2-3.4) K/uL [place] # (Auto) 0.86 H (0.11-0.59) K/uL Chloride (98-107) mmol/L Glucose 100 H (70-99) mg/dl AST 325 H (15-37) U/L ALT 188 H (12-78) U/L Total Protein (6.4-8.2) gm/dl Albumin (3.4-5.0) gm/dl Urine Appearance Turbid A (Clear) Urine pH 8.0 H (4.5-7.5) Ur Leukocyte Esterase Trace H (Negative) U Epithel Cells (Auto) 10-20 H (0-5) /lpf 01/10/19 01/10/19 Range/Units 07:36 07:36 WBC 3.51 L (4.8-10.8) K/uL RBC 4.02 L (4.2-5.4) M/uL MPV 11.4 H (7.4-10.4) fL Immature Gran # (Auto) (0.00-0.02) K/uL Lymph # (Auto) 1.14 L (1.2-3.4) K/uL [place] # (Auto) (0.11-0.59) K/uL Chloride 111 H (98-107) mmol/L Glucose (70-99) mg/dl AST 789 H (15-37) U/L ALT 663 H (12-78) U/L Total Protein 6.3 L (6.4-8.2) gm/dl Albumin 3.3 L (3.4-5.0) gm/dl Urine Appearance (Clear) Urine pH (4.5-7.5) Ur Leukocyte Esterase (Negative) U Epithel Cells (Auto) (0-5) /lpf Medications Administered Current Inpatient Medications Ceftriaxone Sodium (Rocephin) 1,000 mg in 50 mls @ 100 mls/hr IV DAILY@2200 [facility] Stop: 01/20/19 01:59 Last Infusion: 01/10/19 02:30 Dose: Infused Documented by: Famotidine 20 mg/ Syringe 5 mls @ 2.5 mls/min IV Q12 [facility] Stop: 02/09/19 01:31 Last Admin: 01/10/19 08:54 Dose: 2.5 mls/min Documented by: Potassium Chloride/Sodium Chloride (Normal Saline W/20 Meq Kcl) 20 meq in 1,000 mls @ 100 mls/hr IV .Q10H [facility] Stop: 02/09/19 01:31 Last Infusion: 01/10/19 15:09 Dose: 100 mls/hr Documented by: Morphine Sulfate (Morphine Sulfate) 2 mg IV Q4H PRN PRN Reason: Pain Stop: 01/24/19 02:55 Ondansetron HCl (Zofran) 4 mg IV Q6H PRN PRN Reason: NAUSEA/VOMITING Stop: 02/09/19 01:31 Resident Activity Tracking Resident Involvement: Resident Care Provided Care Provided: Adult Hospital Medicine
[2019-01-11 05:49] LABS: Hematocrit (blood only) 36.8 % (37-47); Hemoglobin 12.2 g/dL (12.0-16.0); Mean Corpuscular Hgb Conc 33.2 g/dL (32-36); Mean Corpuscular Volume 93.6 fL (80-100); Mean Platelet Volume 11.4 fL (7.4-10.4); Platelet Count 146 K/uL (130-400); RDW Coefficient of Variation 12.5 % (11.5-14.5); RDW Standard Deviation 42.9 fL (36.4-46.3); Red Blood Count 3.93 M/uL (4.2-5.4); White Blood Count 3.79 K/uL (4.8-10.8)
[2019-01-11 06:04] LABS: Albumin Level 3.1 gm/dl (3.4-5.0); BUN Creatinine Ratio 9.3 (10-20); Blood Urea Nitrogen 6 mg/dl (7-18); Calcium 8.5 mg/dl (8.5-10.1); Carbon Dioxide 29 mmol/L (21-32); Chloride 112 mmol/L (98-107); Creatinine Clr Calc Pharmacy 69.8 ml/min; Est GFR (African American) 114.1; Est GFR (Non-African American) 98.5; Glucose 83 mg/dl (70-99); Potassium 4.1 mmol/L (3.5-5.1); Sodium 145 mmol/L (136-145)
[2019-01-11 06:08] LABS: Alanine Aminotransferase 408 U/L (12-78); Albumin Globulin Ratio 1.1 (0.9-2); Alkaline Phosphatase 121 U/L (45-117); Aspartate Aminotransferase 204 U/L (15-37); Bilirubin,Total 0.4 mg/dl (0.2-1); Globulin 2.9 gm/dl (2.5-4.0)
[2019-01-11 06:13] LABS: Prothrombin Time 10.5 Seconds (9.0-12.0)
[2019-01-11 06:15] LABS: Bilirubin Direct < 0.1 mg/dl (0-0.2)
[2019-01-11] MEDS ORDERED: ATROPINE SULFATE 0.1 MG/ML 10ML SYR IV PRN (06:35)
[2019-01-11] MEDS ORDERED: ONDANSETRON INJ 2 MG/ML 2 ML VIAL IV PRN (06:35)
[2019-01-11] MEDS ORDERED: ePHEDrine sulfate 50 MG/ML AMP IV PRN (06:35)
[2019-01-11 06:40] LABS: Basophils # (auto) 0.02 K/uL (0-0.2); Basophils % (auto) 0.5 %; Eosinophils # (auto) 0.26 K/uL (0-0.5); Eosinophils % (auto) 6.9 %; Lymphocytes # (auto) 1.96 K/uL (1.2-3.4); Lymphocytes % (auto) 51.7 %; Monocytes # (auto) 0.27 K/uL (0.11-0.59); Monocytes % (auto) 7.1 %; Neutrophils # (auto) 1.28 K/uL (1.4-6.5); Neutrophils % (auto) 33.8 %
--- NOTE | 2019-01-11 06:43 | Anesthesiology Consultation ---
Date of Service January 11, 2019 Assessment & Plan Chart Review Chart Review: Acceptable Risk for Surgery Consults Requested none Proposed Anesthesia Risk / Benefits Reviewed With: PT / POA / Parent / Guardian, Accepts Plan and Informed Consent Obtained History Surgery Operation Date: 01/11/19 07:00 Proposed Procedures p Laparoscopic Cholecystectomy, Possible Cholangiogram - Mehdi Rocha DO, FACS Height/Weight Height: 4 ft 11 in Weight: 53.5 kg Allergies Allergy/AdvReac Type Severity Reaction Status Date / Time lovastatin Allergy Unknown LEG PAIN, Verified 01/09/19 21:42 MUSCLE SPASMS simvastatin Allergy Unknown LEG PAIN, Verified 01/09/19 21:42 MUSCLE SPASMS Medications Home Medications Medication Instructions Recorded Confirmed Last Taken desvenlafaxine succinate [Pristiq] 50 mg PO QAM 01/03/19 01/09/19 Unknown multivitamin 1 tab PO QAM 01/03/19 01/09/19 Unknown ranitidine HCl [Zantac] 150 mg PO QAM 01/03/19 01/09/19 Unknown cyanocobalamin (vitamin B-12) 0 mcg PO QAM 01/09/19 01/09/19 Unknown [Vitamin B-12] Active Medications Generic Name Dose Route Start Last Admin Trade Name Freq PRN Reason Stop Dose Admin Ceftriaxone Sodium 1,000 mg in 50 mls @ 100 mls/hr 01/10/19 02:00 01/10/19 21:50 Rocephin IV 01/20/19 01:59 Infused DAILY@2200 [facility] Infusion Famotidine 20 mg/ Syringe 5 mls @ 2.5 mls/min 01/10/19 01:32 01/10/19 21:06 IV 02/09/19 01:31 2.5 mls/min Q12 VANE Administration Potassium Chloride/Sodium Chloride 20 meq in 1,000 mls @ 100 mls/hr 01/10/19 01:32 01/11/19 06:34 Normal Saline W/20 Meq Kcl IV 02/09/19 01:31 Infused .Q10H [facility] Infusion NPO Date Last Intake of Fluids: 01/10/19 Time Last Intake of Fluids: 23:59 Date Last Intake of Solids: 01/10/19 Time Last Intake of Solids: 23:59 Past Medical History Medical History Anxiety GERD (gastroesophageal reflux disease) Hiatal hernia History of esophagitis History of gastritis Hyperlipidemia Peptic ulcer disease Exercise / Class Metabolic Activity 1 > 8 Run/Swim/Ski/Tennis Past Family History Family History Grandfather (Paternal) Family history of diabetes mellitus Past Surgical History Surgical History H/O bursectomy OF RIGHT HIP History of arthroscopy LEFT KNEE History of arthroscopy of right shoulder Rotator Cuff Repair History of colonoscopy History of esophagogastroduodenoscopy (EGD) S/P bilateral breast reduction Past Anesthesia History No Hx of Anesthesia Complications and No Family Hx of Anesthesia Complications History of PONV No Hx of Motion Sickness and History of PONV Social History Smoking Status: Former smoker tobacco type: cigarettes Do You Dip or Chew Tobacco: No Hx Alcohol Use: No Hx Substance Use: No substance use type: does not use Physical Exam Vital Signs Last Vital Signs Temp 98.1 F 01/11/19 06:04 Pulse 60 01/11/19 06:04 Resp 16 01/11/19 06:04 BP 96/59 L 01/11/19 06:04 Pulse Ox 97 01/11/19 06:04 ENMT Mouth: no dentition abnormality Thyromental Distance: > or= 3.5 Finger Breadths Mallampati Class: II Neck normal visual inspection Respiratory normal respiratory effort Auscultation: lungs clear to auscultation bilaterally Cardiovascular Rate/Rhythm: regular rate and regular rhythm Testing Laboratory Results 01/11/19 05:33 01/11/19 05:33 PT 10.5 Seconds (9.0-12.0) 01/11/19 05:33 INR 1.0 (0.9-1.1) 01/11/19 05:33 APTT 25.3 Seconds (21.0-31.0) 01/10/19 07:36 Urine Color Yellow 01/09/19 22:28 Urine Appearance Turbid (Clear) A 01/09/19 22:28 Urine pH 8.0 (4.5-7.5) H 01/09/19 22:28 Ur Specific [place] 1.019 (1.000-1.030) 01/09/19 22:28 Urine Protein Negative (Negative) 01/09/19 22:28 Urine Glucose (UA) Negative (Negative) 01/09/19 22:28 Urine Ketones Negative (Negative) 01/09/19 22:28 Urine Nitrite Negative (Negative) 01/09/19 22:28 Ur Leukocyte Esterase Trace (Negative) H 01/09/19 22:28 Urine WBC (Auto) 1-5 /hpf (0-5) 01/09/19 22:28 Urine RBC (Auto) 0-4 /hpf (0-4) 01/09/19 22:28 U Hyaline Cast (Auto) 1-5 /lpf (0-5) 01/09/19 22:28 U Epithel Cells (Auto) 10-20 /lpf (0-5) H 01/09/19 22:28 Urine Bacteria (Auto) Negative (Negative) 01/09/19 22:28 01/09/19 22:28 POC Ur Test NEG Electrocardiogram Date: 01/09/19 Findings: + NSR @ (64 bpm) Chest X-Ray Date: 01/04/19 Findings: + NAD
[2019-01-11] MEDS ORDERED: BUPIVACAINE 0.5 % 5 MG/1 ML MPF 30ML VIAL ONE (06:48)
[2019-01-11] MEDS ORDERED: CONRAY 60% 50 ML VIAL ONE (06:49)
--- NOTE | 2019-01-11 06:57 | Family Medicine Progress Note ---
Date of Service January 10, 2019 Assessment & Plan (1) Calculous cholecystitis: (2) Anxiety: (3) GERD (gastroesophageal reflux disease): (4) Hiatal hernia:
[2019-01-11] MEDS ORDERED: LIDOCAINE HCL 2% 2 ML VIAL/AMP(20MG/ML) INFIL ONE (07:00)
[2019-01-11] MEDS ORDERED: PROPOFOL IV EMULSION 10 MG/ML 20 ML VIAL IV ONE (07:00)
[2019-01-11] MEDS ORDERED: MIDAZOLAM HCL 1 MG/ML 2ML VIAL ONE (07:00)
[2019-01-11] MEDS ORDERED: fentaNYL citrate 100 MCG/2 ML VIAL ONE (07:00)
[2019-01-11] MEDS ORDERED: ROCURONIUM BROMIDE 10 MG/ML 5 ML VIAL ONE (07:00)
--- NOTE | 2019-01-11 07:08 | Surgery Progress Note ---
Date of Service January 11, 2019 Assessment & Plan (1) Acute calculous cholecystitis: acute cholecystitis, enzymes downtrending and MRCP neg plan for laparoscopic cholecystectomy with possible cholangiogram risks reviewed questions answered possible d/c this afternoon or tomorrow Present on Admission?: Yes Subjective cholelithiasis with cholecystitis, elevated liver enzymes. Scheduled for elective surgery this morning, was admitted on Wednesday night. No changes, feels better than on admission. Physical Exam Constitutional: WD/WN, vitals as above Gastrointestinal (Abdomen): normal bowel sounds, soft, nontender, no hepatosplenomegaly Results & Data Vital Signs (Past 12 Hours) Vital Signs Temp Pulse Resp BP Pulse Ox 01/11/19 06:04 36.7 C 60 16 96/59 L 97 01/10/19 23:31 36.5 C 55 L 16 95/55 L 94 Laboratory Results Laboratory Results - last 24 hr 01/10/19 01/10/19 01/10/19 07:36 07:36 07:36 WBC 3.51 L RBC 4.02 L Hgb 12.3 Hct 37.3 MCV 92.8 MCH 30.6 MCHC 33.0 RDW Std Deviation 42.7 RDW Coeff of Robby 12.5 Plt Count 145 MPV 11.4 H Immature Gran % (Auto) 0.0 Neut % (Auto) 49.5 Lymph % (Auto) 32.5 [place] % (Auto) 13.7 Eos % (Auto) 4.0 Baso % (Auto) 0.3 Immature Gran # (Auto) 0.00 Neut # (Auto) 1.74 Lymph # (Auto) 1.14 L [place] # (Auto) 0.48 Eos # (Auto) 0.14 Baso # (Auto) 0.01 PT 10.2 INR 1.0 APTT 25.3 PTT Ratio 0.9 Sodium 142 Potassium 4.3 Chloride 111 H Carbon Dioxide 26 Anion Gap 5.0 BUN 13 Creatinine 0.71 Est Cr Clr Drug Dosing 66.9 Est GFR ( Amer) 111.1 Est GFR (Non-Af Amer) 95.9 BUN/Creatinine Ratio 18.6 Glucose 97 Calcium 8.6 Total Bilirubin 0.8 Direct Bilirubin AST 789 H ALT 663 H Alkaline Phosphatase 112 Total Protein 6.3 L Albumin 3.3 L Globulin 3.0 Albumin/Globulin Ratio 1.1 Hepatitis C Ab Screen 01/10/19 01/11/19 01/11/19 07:36 05:33 05:33 WBC 3.79 L RBC 3.93 L Hgb 12.2 Hct 36.8 L MCV 93.6 MCH 31.0 MCHC 33.2 RDW Std Deviation 42.9 RDW Coeff of Robby 12.5 Plt Count 146 MPV 11.4 H Immature Gran % (Auto) 0.0 Neut % (Auto) 33.8 Lymph % (Auto) 51.7 [place] % (Auto) 7.1 Eos % (Auto) 6.9 Baso % (Auto) 0.5 Immature Gran # (Auto) 0.00 Neut # (Auto) 1.28 L Lymph # (Auto) 1.96 [place] # (Auto) 0.27 Eos # (Auto) 0.26 Baso # (Auto) 0.02 PT INR APTT PTT Ratio Sodium 145 Potassium 4.1 Chloride 112 H Carbon Dioxide 29 Anion Gap 4.0 BUN 6 L D Creatinine 0.68 Est Cr Clr Drug Dosing 69.8 Est GFR ( Amer) 114.1 Est GFR (Non-Af Amer) 98.5 BUN/Creatinine Ratio 9.3 L Glucose 83 Calcium 8.5 Total Bilirubin 0.4 Direct Bilirubin < 0.1 D AST 204 H ALT 408 H Alkaline Phosphatase 121 H Total Protein 6.0 L Albumin 3.1 L Globulin 2.9 Albumin/Globulin Ratio 1.1 Hepatitis C Ab Screen Neg 01/11/19 05:33 WBC RBC Hgb Hct MCV MCH MCHC RDW Std Deviation RDW Coeff of Robby Plt Count MPV Immature Gran % (Auto) Neut % (Auto) Lymph % (Auto) [place] % (Auto) Eos % (Auto) Baso % (Auto) Immature Gran # (Auto) Neut # (Auto) Lymph # (Auto) [place] # (Auto) Eos # (Auto) Baso # (Auto) PT 10.5 INR 1.0 APTT PTT Ratio Sodium Potassium Chloride Carbon Dioxide Anion Gap BUN Creatinine Est Cr Clr Drug Dosing Est GFR ( Amer) Est GFR (Non-Af Amer) BUN/Creatinine Ratio Glucose Calcium Total Bilirubin Direct Bilirubin AST ALT Alkaline Phosphatase Total Protein Albumin Globulin Albumin/Globulin Ratio Hepatitis C Ab Screen Diagnostic Findings CLINICAL HISTORY: Cholecystitis. COMPARISON STUDY: Abdominal CT dated 01/10/2019. Abdominal ultrasound dated 01/09/2019. TECHNIQUE: Abdominal MRCP is performed utilizing various T2-weighted sequences in the axial and coronal planes. IV contrast was not administered for this examination. 3-D reformats are created and assessed. The examination is degraded by motion artifact. FINDINGS: The gallbladder is distended and filled with numerous gallstones. The gallbladder wall is thickened and there is pericholecystic inflammation and fluid. The appearance is consistent with acute cholecystitis. The common bile duct is diminutive measuring up to 3 mm in diameter. There are no filling defects identified to suggest choledocholithiasis. There is a questionable second ductal structure (both are seen on coronal high-resolution image #66 of 136) of indeterminant significance extending from the hilum. Variant ductal anatomy/duplication is not excluded. There is likely a stone within the cystic duct seen on axial high-resolution image #143 of 321. The pancreatic duct is normal in caliber and not well visualized. A 10 mm cyst is identified in the left lobe of the liver. The unenhanced liver is otherwise grossly unremarkable. The unenhanced spleen, adrenal glands, and pancreas are normal as imaged. The kidneys are normal in size and without hydron ephrosis. There is no evidence of bowel obstruction. Colonic fecal retention is observed. The abdominal aorta is normal in caliber. No pleural effusion is identified. The bony structures are normal as imaged. IMPRESSION: 1. Cholelithiasis with evidence of acute cholecystitis. 2. A stone is likely present within the cystic duct. 3. The common bile duct is diminutive. There is no evidence of ch oledocholithiasis. 4. Question a second ductal structure extending from the hepatic hilum towards the duodenum. This is not well delineated, and variant ductal anatomy/duplication is not excluded. PG Care Time/CCT Total # of Minutes Spent Total Time Spent with Patient: Total time spent is greater than 50% in coordination of care (as documented) at patient's floor/unit and/or counseling patient:
[2019-01-11] MEDS ORDERED: SCOPOLAMINE 1.5 MG TDSY ONE (07:21)
--- NOTE | 2019-01-11 08:31 | Operative Report ---
Post Operative Report Pre & Post Diagnosis Operation Date: 01/11/19 07:00 Pre-Op Diagnosis: CHOLECYSTITIS, ENLARGED CBD Post-Op Diagnosis: CHOLECYSTITIS, ENLARGED CBD Procedure Operation Date: 01/11/19 07:00 Actual Procedures p Laparoscopic Cholecystectomy, Cholangiogram(Not Applicable) - Mehdi Rocha DO, JOSIAS Surgeon Mehdi Rocha DO, JOSIAS On Line Csr Francois Flores Estimated Blood Loss 3 Findings Consistent with Post-Op Diagnosis Acute on chronic cholecystitis with moderate inflammation. Some adhesions of duodenum the gallbladder taken down with careful blunt dissection. Critical view of safety obtained. Cholangiogram performed, appeared to be a small filling defect in the distal common bile duct but was unable to obtain an adequate image. Cystic duct and artery doubly clipped and divided. Good hemostasis. Specimens Gallbladder Anesthesia Type General Disposition Accompanied Patient To Recovery: No Disposition: Recovery Room Indications 53-year-old female known to me with history of cholelithiasis and liver enzyme elevations, likely chronic cholecystitis. We plan for laparoscopic cholecystectomy as an outpatient. She was admitted 2 nights ago for pain and had an elevation in her liver enzymes but her bilirubin was normal. A CT scan was performed and showed cholecystitis. An MRCP was performed and revealed no filling defect in the common bile duct. Plan for laparoscopic cholecystectomy, possible cholangiogram. The risks of the procedure were discussed, all questions were answered, and the patient agreed to proceed with surgery as planned. Description of Procedure The patient was properly identified, consented, and taken to the operating room where she was placed in the supine position. General endotracheal anesthesia was induced. SCDs and a safety belt were placed. Preoperative antibiotics were administered. The patient's abdomen was prepped and draped in the standard sterile fashion. A surgical timeout was performed and all parties were in agreement that this was the correct patient and procedure to be performed and we continued as planned. An incision was made superior and to the left of the umbilicus overlying the rectus muscle and the Veress needle was inserted. Saline drop test confirmed entry into the peritoneum. The abdomen was insufflated with carbon dioxide which the patient tolerated without incident. The abdomen was then entered using the Optiview technique and a 5 mm trocar. The laparoscope was inserted and no damage from initial trocar or Veress needle placement was noted, no gross abnormalities were noted within the 4 quadrants of the abdomen. An 11 mm port was placed in the subxiphoid position and two 5 mm ports were then placed in the right subcostal position. The patient was placed in reverse Trendelenburg position and rotated towards the left. The gallbladder was moderately inflamed. Omental adhesions were taken down with blunt dissection. The duodenum had some thin filmy adhesions to the gallbladder. These were taken down with careful blunt dissection. There was no injury to the duodenum during the procedure. The dome of the gallbladder was retracted towards the left upper quadrant and the infundibulum was retracted toward the right lower quadrant revealing Calot's triangle. Peritoneal attachments were taken down with electrocautery and blunt dissection. The cystic duct and artery were circumferentially dissected. A window of safety was obtained showing the cystic duct entering the gallbladder with no aberrant structures noted. The [facility] cholangiocatheter was then used to perform an intraoperative cholangiogram. On the initial imaging there appeared to be a small filling defect in the distal common bile duct. Contrast filled the gallbladder and I was unable to get adequate visualization of the remainder of the bile duct and hepatic radicles and could not replicate the finding. At this point we decided to proceed with removal of the gallbladder. The cystic duct and artery were doubly clipped and divided. The gallbladder was then lifted off the gallbladder fossa with electrocautery. The gallbladder was placed in an Endo Catch bag and removed through the subxyphoid port site. The right upper quadrant was irrigated and hemostasis was found to be good. 5 mm trochars were removed under direct visualization and the abdomen was allowed to collapse. The subxyphoid port site fascia was closed with 0 Vicryl suture using the Alfa- Carey closure device. The wound was irrigated, and the skin of all ports was closed with 4-0 Monocryl subcuticular sutures. Dermabond was placed over the wounds. The patient was extubated in the operating room and taken to the PACU where she recovered without apparent incident. All sponge, instrument and needle counts were correct at the conclusion of the procedure. The patient tolerated the procedure well. The physician's music library assistant was present and scrubbed for the entirety of the case and was essential in positioning the patient, prepping and draping, retraction and exposure, driving the laparoscope, removal of the gallbladder, closure the incisions, and placement of the dressings. I attest to the content of the Intraoperative Record and any orders documented therein. Any exceptions are noted below.
[2019-01-11] MEDS: fentaNYL citrate 100 MCG/2 ML VIAL IV PRN ×3 (09:01→09:12)
--- NOTE | 2019-01-11 09:02 | Fluoroscopy Report ---
[place] cholangiogram OR HISTORY: 53 years-old Female IOC intraoperative cholangiogram COMPARISON: MRCP 01/10/2019 TECHNIQUE: 9 spot fluoroscopic images of the abdominal right upper quadrant were obtained utilizing 5 0.6 seconds fluoroscopy time FINDINGS: Contrast opacification of the gallbladder and biliary tree is noted with contrast extending into the duodenum through the common bile duct. Distended stone filled gallbladder redemonstrated. There is ap parent narrowing of the mid common bile duct. No contrast extravasation or significant biliary ductal dilation identified. IMPRESSION: Fluoroscopic assistance as above. Please see procedural report for further details. The above report was generated using voice recognition software. It may contain grammatical, syntax o r spelling errors. Electronically signed by: Ceasar Bryson M.D. 01/11/2019 9:01 AM
--- NOTE | 2019-01-11 09:25 | Family Medicine Progress Note ---
Date of Service January 11, 2019 Assessment & Plan (1) Calculous cholecystitis: Patient is a 53 year old female that presented to the ED with RUQ abdominal pain. She was scheduled to undergo elective cholecystectomy with Dr. Rocha on 01/11/19. Acute Calculous Cholecystitis -MRCP showed stone in cystic duct -General Surgery Consulted -Patient underwent a Laparoscopic Cholecystectomy and Cholangiogram with Dr. Rocha this AM (01/11/19) -Currently on Clear Liquid Diet -- Advanced to normal diet this afternoon. -Consider D/C either later this afternoon or tomorrow AM. -Famotidine IV Q12H -Percocet PO Q4H PRN -Morphine 2mg IV Q4H PRN -Zofran 4mg IV Q6H PRN GERD -Hold home Ranitidine Hiatal Hernia -Had a recent Endoscopy with Dr. Olivares in July. Anxiety -Hold home Pristiq FEN/GI - Normal Diet, LR Code - Full DVT - SCD's (2) Anxiety: (3) GERD (gastroesophageal reflux disease): (4) Hiatal hernia: Supervising Physician Co-Signing Physician Notes Resident Physician Supervision Note: I independently interviewed and examined the patient and verified the hoover history and physical, reviewed labs and image studies, discussed the case with the resident Dr. Ceballos and agree with the findings and care plan. Subjective Patient seen in bed this AM post laparoscopic cholecystectomy. Present in the room also was the patient's . Patient stated that she was feeling well after the procedure, only noting minimal pain and drowsiness secondary to coming out of anesthesia. She did note improvement of the pain that she had been having in her abdominal RUQ. She stated that she had a strong appetite, and was looking forward to the liquid diet that had just entered her room. She has no other complaints at this time. Review of Systems Constitutional: no fever, no chills and no fatigue Eyes: no eye pain Ear, Nose, Mouth, Throat: no ear pain and no dizziness Respiratory: no cough, no chest congestion, no dyspnea and no dyspnea on exertion Cardiovascular: no chest pain, no chest pain at rest, no radiating jaw, neck or arm pain, no dyspnea and no dyspnea on exertion Gastrointestinal: + abdominal pain (Slight secondary to surgical procedure); no nausea and no vomiting Genitourinary: no dysuria, no urinary frequency, no urinary hesitancy and no hematuria Musculoskeletal: no back pain Physical Exam Constitutional: well developed and well nourished; no acute distress Eyes: normal visual guerra by confrontation, + anicteric sclerae and PERRL ENMT: external ear and nose normal, oropharynx normal Neck: trachea midline, no thyromegaly Respiratory: normal respiratory effort, lungs clear to auscultation Cardiovascular: RRR, no murmur, no edema Gastrointestinal (Abdomen): Inspection/Auscultation: abdomen normal to inspection and normal bowel sounds; abdomen not distended Incision sites were clean and dry Musculoskeletal: Head/Neck/Chest: normocephalic, head atraumatic and neck supple Skin: no jaundice Neurologic: awake; not confused and not obtunded Psychiatric: A+Ox3, euthymic affect Results & Data Vital Signs (Past 12 Hours) Vital Signs Temp Pulse Pulse Pulse Resp BP BP 01/11/19 09:19 36.4 C L 01/11/19 09:15 61 14 126/58 L 01/11/19 09:10 67 14 117/73 01/11/19 09:05 59 L 14 131/75 01/11/19 09:00 60 14 134/70 01/11/19 08:56 61 14 01/11/19 08:55 61 14 130/67 01/11/19 08:50 60 14 125/68 01/11/19 08:45 61 14 144/69 H 01/11/19 08:43 64 13 01/11/19 08:42 36.6 C 55 L 56 L 14 135/71 135/71 01/11/19 06:34 36.6 C 55 L 20 113/65 01/11/19 06:04 36.7 C 60 16 96/59 L 01/10/19 23:31 36.5 C 55 L 16 95/55 L Pulse Ox 01/11/19 09:19 99 01/11/19 09:15 93 01/11/19 09:10 92 01/11/19 09:05 96 01/11/19 09:00 100 01/11/19 08:56 100 01/11/19 08:55 100 01/11/19 08:50 100 01/11/19 08:45 100 01/11/19 08:43 99 01/11/19 08:42 98 01/11/19 06:34 95 01/11/19 06:04 97 01/10/19 23:31 94 Laboratory Results Abnormal lab results 01/11/19 01/11/19 Range/Units 05:33 05:33 WBC 3.79 L (4.8-10.8) K/uL RBC 3.93 L (4.2-5.4) M/uL Hct 36.8 L (37-47) % MPV 11.4 H (7.4-10.4) fL Neut # (Auto) 1.28 L (1.4-6.5) K/uL Chloride 112 H (98-107) mmol/L BUN 6 L D (7-18) mg/dl BUN/Creatinine Ratio 9.3 L (10-20) AST 204 H (15-37) U/L ALT 408 H (12-78) U/L Alkaline Phosphatase 121 H (45-117) U/L Total Protein 6.0 L (6.4-8.2) gm/dl Albumin 3.1 L (3.4-5.0) gm/dl Medications Administered Current Inpatient Medications Ceftriaxone Sodium (Rocephin) 1,000 mg in 50 mls @ 100 mls/hr IV DAILY@2200 [facility] Stop: 01/20/19 01:59 Last Infusion: 01/10/19 21:50 Dose: Infused Documented by: Famotidine 20 mg/ Syringe 5 mls @ 2.5 mls/min IV Q12 VANE Stop: 02/09/19 01:31 Last Admin: 01/11/19 10:02 Dose: 2.5 mls/min Documented by: Lactated Ringer's (Lr) 1,000 mls @ 80 mls/hr IV .[id number] [facility] Stop: 02/10/19 09:42 Last Admin: 01/11/19 17:15 Dose: 80 mls/hr Documented by: Morphine Sulfate (Morphine Sulfate) 2 mg IV Q1H PRN PRN Reason: Pain Stop: 01/25/19 09:42 Morphine Sulfate (Morphine Sulfate) 4 mg IV Q1H PRN PRN Reason: Pain Stop: 01/25/19 09:42 Ondansetron HCl (Zofran) 4 mg IV Q6H PRN PRN Reason: NAUSEA/VOMITING Stop: 02/09/19 01:31 Last Admin: 01/11/19 10:34 Dose: 4 mg Documented by: Oxycodone/Acetaminophen (Percocet 5mg/325mg) 1 tab PO Q4H PRN PRN Reason: Pain Stop: 01/25/19 09:42 Oxycodone/Acetaminophen (Percocet 5mg/325mg) 2 tab PO Q4H PRN PRN Reason: Pain Stop: 01/25/19 09:42 Last Admin: 01/11/19 11:36 Dose: 2 tab Documented by: PG Care Time/CCT Total # of Minutes Spent Total Time Spent with Patient: Total time spent is greater than 50% in coordinate measuring equipment operator rdination of care (as documented) at patient's floor/unit and/or counseling patient: Resident Activity Tracking Resident Involvement: Resident Care Provided Care Provided: Adult Hospital Medicine
--- NOTE | 2019-01-11 09:38 | Anesthesiology Progress Note ---
Date of Service January 11, 2019 Anesthesia Post Procedure Vital Signs Vital Signs: Temp Pulse Pulse Pulse Resp BP BP 01/11/19 09:25 97.5 F L 60 16 131/64 01/11/19 09:19 97.5 F L 01/11/19 09:15 61 14 126/58 L 01/11/19 09:10 67 14 117/73 01/11/19 09:05 59 L 14 131/75 01/11/19 09:00 60 14 134/70 01/11/19 08:56 61 14 01/11/19 08:55 61 14 130/67 01/11/19 08:50 60 14 125/68 01/11/19 08:45 61 14 144/69 H 01/11/19 08:43 64 13 01/11/19 08:42 97.9 F 55 L 56 L 14 135/71 135/71 01/11/19 06:34 97.9 F 55 L 20 113/65 01/11/19 06:04 98.1 F 60 16 96/59 L 01/10/19 23:31 97.7 F 55 L 16 95/55 L 01/10/19 15:42 97.9 F 63 16 103/48 L Pulse Ox 01/11/19 09:25 100 01/11/19 09:19 99 01/11/19 09:15 93 01/11/19 09:10 92 01/11/19 09:05 96 01/11/19 09:00 100 01/11/19 08:56 100 01/11/19 08:55 100 01/11/19 08:50 100 01/11/19 08:45 100 01/11/19 08:43 99 01/11/19 08:42 98 01/11/19 06:34 95 01/11/19 06:04 97 01/10/19 23:31 94 01/10/19 15:42 94 Pain Intensity Left Flank: Pain Intensity: 2 Abdomen: Pain Intensity: 3 Transfer of Care Handoff Completed per policy Notes Mental Status: alert / awake / arousable and participated in evaluation Patient Amnestic to Procedure: Yes Nausea / Vomiting: adequately controlled Pain: adequately controlled Airway Patency, RR, SpO2: stable & adequate BP & HR: stable & adequate Hydration State: stable & adequate Anesthetic Complications: no major complications apparent and Pt Satisfied with anesthetic care
[2019-01-11] MEDS ORDERED: MoRPHine SULFATE 4 MG/ML 1 ML CARP\\VIAL IV PRN (09:43)
[2019-01-11] MEDS ORDERED: MoRPHine SULFATE 2 MG/ML CARP IV PRN (09:43)
[2019-01-11] MEDS: NSS + 20MEQ KCL 20 MEQ/1,000 ML BAG IV SCH (09:56)
[2019-01-11] MEDS: LACTATED RINGER'S 1,000 ML IV SCH ×2 (10:02→17:15)
[2019-01-11] MEDS: FAMOTIDINE 20 MG in SYRINGE 3 ML IV SCH ×2 (10:02→21:18)
[2019-01-11] MEDS ORDERED: GLYCOPYRROLATE 0.2 MG/ML VIAL ONE (10:06)
[2019-01-11] MEDS ORDERED: NEOSTIGMINE METHYLSULFATE 5 MG/5 ML SYR ONE (10:06)
[2019-01-11] MEDS ORDERED: ONDANSETRON INJ 2 MG/ML 2 ML VIAL ONE (10:34)
[2019-01-11] MEDS ORDERED: DEXAMETHASONE SOD INJ 4 MG/ML VIAL ONE (10:34)
[2019-01-11] MEDS: OXYCODONE/ACETAMINOPHEN 5mg/325mg TAB PO PRN ×3 (11:36→23:50)
[2019-01-11] MEDS ORDERED: DEXTROSE 5% IV ONE (14:36)
[2019-01-11] MEDS ORDERED: [UNRECOGNIZED DRUG - OTHER] IV ONE (14:36)
[2019-01-11] MEDS: cefTRIAXone SODIUM 1,000 MG/50 ML BAG IV SCH (21:18)
[2019-01-12] MEDS: LACTATED RINGER'S 1,000 ML IV SCH (05:53)
[2019-01-12 06:45] LABS: Basophils # (auto) 0.01 K/uL (0-0.2); Basophils % (auto) 0.1 %; Eosinophils # (auto) 0.02 K/uL (0-0.5); Eosinophils % (auto) 0.2 %; Hematocrit (blood only) 38.1 % (37-47); Hemoglobin 12.5 g/dL (12.0-16.0); Immature Granulocytes # (auto) 0.02 K/uL (0.00-0.02); Immature Granulocytes % (auto) 0.2 %; Lymphocytes # (auto) 2.01 K/uL (1.2-3.4); Lymphocytes % (auto) 18.9 %; Mean Corpuscular Hgb Conc 32.8 g/dL (32-36); Mean Platelet Volume 11.8 fL (7.4-10.4); Monocytes # (auto) 0.75 K/uL (0.11-0.59); Neutrophils # (auto) 7.84 K/uL (1.4-6.5); Neutrophils % (auto) 73.6 %; Platelet Count 159 K/uL (130-400); RDW Coefficient of Variation 12.6 % (11.5-14.5); RDW Standard Deviation 43.8 fL (36.4-46.3); Red Blood Count 3.97 M/uL (4.2-5.4); White Blood Count 10.65 K/uL (4.8-10.8)
[2019-01-12 06:57] LABS: Prothrombin Time 10.3 Seconds (9.0-12.0)
[2019-01-12 07:13] LABS: Albumin Level 3.2 gm/dl (3.4-5.0); Creatinine Clr Calc Pharmacy 65.9 ml/min; Est GFR (African American) 109.3; Est GFR (Non-African American) 94.3; Potassium 3.5 mmol/L (3.5-5.1)
[2019-01-12 07:16] LABS: Bilirubin,Total 0.3 mg/dl (0.2-1); Globulin 3.1 gm/dl (2.5-4.0); Total Protein 6.4 gm/dl (6.4-8.2)
[2019-01-12] MEDS: FAMOTIDINE 20 MG in SYRINGE 3 ML IV SCH (08:23)
--- NOTE | 2019-01-12 11:21 | Surgery Progress Note ---
Date of Service January 12, 2019 Assessment & Plan (1) Acute calculous cholecystitis: POD1 Laparoscopic Cholecystectomy LFTs downtrending Tolerating diet Pain managed with oral pain medications Stable for discharge from a surgical standpoint Subjective Awoke patient this AM to check up on her. She was unsure about going home. Physical Exam Constitutional: WD/WN, vitals as above Gastrointestinal (Abdomen): Inspection/Auscultation: + abdominal surgical incision (clean ,dry, intact, with dermabond over incisions) Results & Data Vital Signs (Past 12 Hours) Vital Signs Temp Pulse Resp BP Pulse Ox 01/12/19 11:15 36.7 C 60 16 92/44 L 95 01/12/19 07:27 36.7 C 58 L 18 94/55 L 96 01/12/19 03:23 36.8 C 64 18 93/55 L 93 PG Care Time/CCT Total # of Minutes Spent Total Time Spent with Patient: Total time spent is greater than 50% in coordination of care (as documented) at patient's floor/unit and/or counseling patient:
--- NOTE | 2019-01-12 13:39 | Discharge Summary ---
Date of Service January 12, 2019 Admission HPI Per Admitting Provider The patient is a 53-year-old female who presents to the emergency department with a recurrent episode of epigastric, right upper quadrant and right posterior back pain. These are most often triggered by eating fatty foods, but may occur out of nowhere. She was seen at an emergency department at [facility], and there was question about a possible gallbladder issue. She reports that she is scheduled to undergo cholecystectomy by Dr. Rocha from general surgery on 01/11/2019. Admission Exam Per Admitting Provider The patient is awake, alert and oriented 3, well developed and well nourished, normocephalic and atraumatic, lying in bed and in no acute distress. HEENT--PERRL, EOMI, mucous membranes and oropharynx dry. Neck--supple. No JVD. No bruits. Thyroid normal, trachea midline, no adenopathy. Heart--normal S1 and S2. No murmurs, rubs or gallops. Lungs--clear bilaterally, no respiratory distress, no accessory muscle use. Abdomen--normal bowel sounds and soft. Mild epigastric and right upper quadrant tenderness pain. Extremities--no cyanosis or clubbing. No edema. There are good distal pulses b/l. Dermatologic--normal skin turgor, normal color, no abnormal lymph nodes, no rash. Neurologic--cranial nerves II through XII grossly intact. Rheumatologic--normal range of motion. Psychiatric--normal affect. Principal Diagnosis cholecystitis Discharge Exam Constitutional well developed and well nourished; no acute distress Eyes normal visual guerra by confrontation, + anicteric sclerae and PERRL ENMT external ear and nose normal, oropharynx normal Neck trachea midline, no thyromegaly Respiratory normal respiratory effort, lungs clear to auscultation Cardiovascular RRR, no murmur, no edema Gastrointestinal (Abdomen) Inspection/Auscultation: abdomen normal to inspection and normal bowel sounds; abdomen not distended Percussion/Palpation: abdomen soft; abdomen nontender (worst in the RUQ), no guarding and abdomen not firm Musculoskeletal Head/Neck/Chest: normocephalic, head atraumatic and neck supple Skin no jaundice Neurologic awake; not confused and not obtunded Psychiatric A+Ox3, euthymic affect Discharge Data Allergies Allergy/AdvReac Type Severity Reaction Status Date / Time lovastatin Allergy Unknown LEG PAIN, Verified 01/09/19 21:42 MUSCLE SPASMS simvastatin Allergy Unknown LEG PAIN, Verified 01/09/19 21:42 MUSCLE SPASMS Consultations 01/10/19 00:05 ED Decision to Admit Stat 01/10/19 01:32 Consult Case Management - Discharge Planning Routine Consult General Surgery Routine Procedures Performed Operation Date: 01/11/19 07:00 Actual Procedures p Laparoscopic Cholecystectomy, Cholangiogram(Not Applicable) - Mehdi Rocha, DO, FACS Ordered Studies 01/09/19 22:43 US gallbladder Urgent 01/10/19 00:04 CT abd pelvis wo con Urgent 01/10/19 00:46 MR MRCP Stat 01/11/19 07:00 [place] cholangiogram OR Routine Hospital Course (1) Calculous cholecystitis: Patient is a 53 year old female that presented to the ED with RUQ abdominal pain. She was scheduled to undergo elective cholecystectomy with Dr. Rocha on 01/11/19. Acute Calculous Cholecystitis -CT revealed distended gallbladder with subtle wall thickening, trace pericholecystic fluid, and gallstones. This strongly suggests the diagnosis of acute calculus cholecystitis. -MRCP showed stone in cystic duct -General Surgery was Consulted -Patient underwent a Laparoscopic Cholecystectomy and Cholangiogram with Dr. Rocha on 01/11/19 -Famotidine IV Q12H -Percocet PO Q4H PRN -Morphine 2mg IV Q4H PRN -Zofran 4mg IV Q6H PRN -Patient was discharged on oral pain medications and instructions to follow up with her PCP and Dr. Rocha. GERD -Held home Ranitidine Hiatal Hernia -Had a recent Endoscopy with Dr. Olivares in July. Anxiety -Held home Pristiq (2) Anxiety: (3) GERD (gastroesophageal reflux disease): (4) Hiatal hernia: Total Time Total Time Spent Total Time Spent (In Minutes): Less than 30 Discharge Plan Discharge Items Patient Disposition: Home - Self-Care Reason For Visit: CHOLECYSTITIS, ENLARGED CBD Discharge Diagnosis: cholecystitis Condition: Good Discharge Goals: Decrease discomfort and Improve disease control Activity: Per 'Additional Instructions' section Lifting Comment: No more than 20 pounds Bathing Comment: You may shower starting today Exercise/Sports: Wait until after follow-up appointment Driving/Machine Use: Resume 3 days after discharge Non-emergency contact: Surgeon Call non-emergency contact if: you have any medication questions, your symptoms worsen, your pain is not controlled, your pain is concerning for you, you have a fever, your temperature is above 101.5, your wound has increased redness and your wound has increased drainage Follow-up/Referrals: Mehdi Rocha DO, FACS [Physician] - 01/26/19 11:30 am ( Please, follow up at [facility] General Surgery Office with Dr. Rocha on January 26 at 11:40 am (arrive 11:30 am). *The office is located at [address] [place] [address] in [place]. If you need to change this appointment, call the office at [phone].) Consuelo Adair MD [Primary Care Provider] - (Please, follow up with Dr. Adair. *A nurse from this office will call you to coordinate the appointment. If you have any questions, call her office at [phone].) Diet: Regular Addtl Provider Instructions: Ms Martha andrade were seen at the ED after experiencing recurrent epigastric, upper right quadrant, and right posterior back pain. You had noted at that time you were to undergo removal of your gallbladder with Dr. Rocha on 01/11/19 that week but that your pain was so much that it brought you in. Your pain was managed with IV pain medications and imaging conducted showing that you had both gallstones and inflammation of your gallbladder. Your pain was well controlled at this point in time and you underwent removal of your gallbladder on 01/11/[address] Rocha as scheduled. You were kept over-night to monitor for further improvement and are being discharged on oral pain medications and your home medications. Please follow the below instructions: -Please continue your home medications as prescribed. -Please take your pain medication as prescribed as needed. -Follow up with your General Surgeon 01/26/19 at 11:30AM. -Follow up with your PCP in the next 2-3 days. ACTIVITY RECOMMENDATIONS: See Above SPECIAL CARE INSTRUCTIONS: Call your doctor if: * Temperature above 101 degrees * Pain not relieved by pain medicine ordered * There is increased drainage or redness from any incision * You have any unanswered questions or concerns. Prescriptions: New oxycodone-acetaminophen [Percocet] 5-325 mg tablet 1 - 2 tab PO Q4H PRN (Reason: pain) Qty: 15 RF: 0 oxycodone-acetaminophen [Percocet] 5-325 mg tablet 1 - 2 tab PO Q4H PRN (Reason: pain, initial therapy) Qty: 15 RF: 0 Continued multivitamin Tablet 1 tab PO QAM RF: 0 ranitidine HCl [Zantac] 150 mg Tablet 150 mg PO QAM RF: 0 desvenlafaxine succinate [Pristiq] 50 mg Tablet Extended Release 24 Hr 50 mg PO QAM RF: 0 cyanocobalamin (vitamin B-12) [Vitamin B-12] 1,000 mcg Tablet Extended Release PO QAM RF: 0 Stand-Alone Forms: Call Back Authorization, [facility]/Other Patient Handouts: Cholecystectomy Laparoscopic Dc Discharge Orders: Discharge Order (Routine); Ordered 01/12/19 Ordered By: Michael Ceballos Admission Data Admit Date/Time: 01/10/19 00:56 Attending Provider: Jacobo Bobby Admit Provider: Matthew Rajput Primary Care Provider: Consuelo Adair Other Providers: Mehdi Rocha ; Matthew Rajput ; Blanquita Ortega Service: Surgical Services Other Interventions: Discharge Summary Assessment (RN) Last Done: 01/12/19 14:25 DC Date/Time DO NOT enter until pt leaves facility: 01/12/19 14:37 Supervising Physician Co-Signing Physician Notes I personally examined the patient and verified all hoover points of history and exam, discussed case, and agree with decision making with Dr Ceballos. Feeling good. Up to going home. Eating okay. Vitals noted, in general she is awake and alert pleasant no distress. HEENT normocephalic atraumatic mucous membranes moist. Breathing unlabored no accessory muscle use good effort. Skin shows no rashes no pallor or icterus. A calculus cholecystitisnow status post cholecystectomy. Stable for discharge home. Outpatient follow-up Resident Activity Tracking Resident Involvement: Resident Care Provided Care Provided: Adult Hospital Medicine
[2019-01-12] MEDS: OXYCODONE/ACETAMINOPHEN 5mg/325mg TAB PO PRN (14:00)
== END 2019-01-12 14:37 | disposition home or self-care (01) | DRG 419 ==
LOC: ED 21:06 → SUATTDRO 01-10 00:56 → 3N 01-10 00:56